=== PATIENT | female | born 1990 | race Caucasian/White ===

== ENCOUNTER 2016-09-27 12:22 | Emergency (ER) | payer BC ==
[~2016-09-27] VITALS: Ht 162.6 cm; Wt 91.0 kg
[~2016-09-27 12:22] MED LIST: EPP3/2 IM; FEXO1TAB49 PO
[2016-09-27 12:31] VITALS: TEMP 36.8; Ht 162.6 cm; Wt 91.0 kg
[2016-09-27] MEDS ORDERED: IBUPROFEN 200 MG TAB PO STA (12:58)
--- NOTE | 2016-09-27 13:02 | EMERGENCY ROOM VISIT NOTE ---
History Report prepared by Angelika: Reji Naylor Under the Supervision of: Dr. Gwendolyn Trotter D.O. First contact with patient: 12:41 Chief Complaint: OTHER COMPLAINT Stated Complaint: CHEST/SKIN-NUMB AND TINGLING, PAIN W/COUGH History of Present Illness The patient is a 26 year old female who presents to the Emergency Room with complaints of worsening chest discomfort that started a few weeks ago. The patient states that 4 weeks ago she slipped twice on ice, and landed on her right knee and toppled over. She had a partial tear of her right MCL, and has a brace on it. The patient states that whenever she had fallen, she must have asim something in her back. A few days after the falls, the right side of her upper back would hurt whenever she breathed. The patient would get a sensation to sneeze, but it would hurt, so she would not actually sneeze. Whenever she would cough and laugh, she would have pain. 2 days ago, the patient actually sneezed, and she felt sudden pain in her back, radiating into her left shoulder and left side of her chest, back to front. The patient notes that this morning she sneezed twice, and she had a lot of pain again. Whenever she coughs or laughs, she has to hold her chest to minimize pain. After her initial sneeze, she has been noticing that her skin has been persistently numb and tingly around her chest, and today, the skin around her chest has been painful to the touch. Her left upper back is continuing to hurt on movement, and lying down exacerbates the pain as well. The patient decided to called the Nurse Line and the patient was suggested to be evaluated here. The patient has been taking Tylenol for the pain. She denies any abdominal pain. The patient notes that she had a lumpectomy of her right breast, and the tingling sensation she had after the procedure is similar to what she is experiencing now. Source of History: patient Onset: A few weeks ago Position: chest (discomfort) Timing: worsening Modifying Factors (Worsening): movement, other (lying down, coughing, laughing, sneezing) Associated Symptoms: + back pain, + numbness (and tingling around chest ), No abdominal pain Note: Associated symptoms: Left shoulder pain. Skin around chest painful to touch. Review of Systems See HPI for pertinent positives & negatives. A total of 10 systems reviewed and were otherwise negative. Past Medical & Surgical Medical Problems: (1) Allergic reaction (2) Anxiety State Nos (3) Chronic Hepatitis C W/O Hepatic Coma (4) Depressive Disorder Nec (5) Tobacco Use Disorder Surgical Problems: (1) History of cholecystectomy (2) History of tonsillectomy (3) Status post breast lumpectomy Family History FH: cancer FH: hypertension FH: seizures Social History Smoking Status: Current Every Day Smoker Alcohol Use: none Marital Status: single Housing Status: lives with family Occupation Status: employed Current/Historical Medications Scheduled Epinephrine (Epipen 2-Nilesh), 0 IM UD Allergies Coded Allergies: No Known Allergies (Unverified , 07/11/15) Physical Exam Vital Signs Date Time Temp Pulse Resp B/P Pulse Ox O2 Delivery O2 Flow Rate FiO2 09/27/16 14:05 70 16 131/65 97 Room Air 09/27/16 12:31 36.8 90 20 158/98 97 Room Air Physical Exam GENERAL: alert, well appearing, well nourished, no distress, non-toxic EYE EXAM: normal conjunctiva, PERRL and EOM's grossly intact OROPHARYNX: no exudate, no erythema, lips, buccal mucosa, and tongue normal and mucous membranes are moist NECK: supple, no nuchal rigidity, no adenopathy, non-tender LUNGS: Clear to auscultation. Normal chest wall mechanics HEART: no murmurs, S1 normal and S2 normal ABDOMEN: abdomen soft, non-tender, normo-active bowel sounds, no masses, no rebound or guarding. BACK: Back is symmetrical on inspection and there is no deformity, no midline tenderness, no CVA tenderness. Mild tenderness along right trapezius. SKIN: no rashes and no bruising UPPER EXTREMITIES: upper extremities are grossly normal. LOWER EXTREMITIES: No pitting edema. NEURO EXAM: Normal sensorium, cranial nerves II-XII grossly intact, normal speech, no gross weakness of arms, no gross weakness of legs. No drift. Finger to nose intact. Gross sensation intact. Medical Decision & Procedures ER Provider Diagnostic Interpretation: X-ray results per the radiologist and my interpretation. TWO VIEW CHEST CLINICAL HISTORY: Atypical chest pain. FINDINGS: PA and lateral chest radiographs are obtained. No prior studies are available for comparison at the time of dictation. The cardiomediastinal silhouette is unremarkable. The lungs and pleural spaces are clear. There is no pneumothorax. The bony thorax appears intact. Cholecystectomy clips are seen in the right upper quadrant. IMPRESSION: No active disease in the chest. Electronically signed by: Sidney Miner M.D. 09/27/2016 1:13 PM Dictated Date/Time: 09/27/2016 1:13 PM Medications Administered Medications (Trade) Dose Ordered Sig/Nicole Route Start Time Stop Time Status Last Admin Dose Admin Ibuprofen (Advil Tab) 800 mg NOW STAT PO 09/27/16 12:58 09/27/16 13:00 DC 09/27/16 13:09 800 MG Acetaminophen (Tylenol Tab) 1,000 mg NOW STAT PO 09/27/16 14:02 09/27/16 14:03 DC 09/27/16 14:08 1,000 MG ECG Indication: chest pain Rate (beats per minute): 62 Rhythm: normal sinus Findings: T-wave inversion (in 1 and AVL), other (normal axis, normal intervals ) Change: Second ECG: Sinus gaby at 58 bpm, normal axis, normal intervals, no ectopy, no acute ischemic changes. ED Course 1244: The patient was evaluated in room B9. A complete history and physical exam was performed. 1258: Ordered Advil Tab 800 mg PO. 1358: Upon reevaluation, the patient resting comfortably. I discussed the findings and the treatment plan with the patient. She verbalizes agreement and understanding. She will be discharged home. 1402: Ordered Tylenol Tab 1000 mg PO. Medical Decision Differential diagnoses include but are not limited to: acute trauma, pneumothorax, muscle strain, costochondritis Pt well appearing here despite complaints. Stable VS, pain improved with meds. Suspect first EKG with lead reversal. Doubt acute cardiac etiology including acs, dissection, tamponade,effusion, pericarditis, doubt occult chest trauma. No direct trauma to chest 5 weeks about with original fall. More likely musculoskeletal injury that was exacerbated with recent sneezing. Discussed with pt close f/u with PCP, sx to watch/return for, she verbalized understanding and was agreeable with plan. Pt encouraged to quit smoking. Impression Primary Impression: Chest pain Scribe Attestation The scribe's documentation has been prepared under my direction and personally reviewed by me in its entirety. I confirm that the note above accurately reflects all work, treatment, procedures, and medical decision making performed by me. Departure Information Dispostion Home / Self-Care Referrals No Doctor, Assigned (PCP) Forms HOME CARE DOCUMENTATION FORM, IMPORTANT VISIT INFORMATION, WORK / SCHOOL INSTRUCTIONS Patient Instructions [facility] Additional Instructions Please call and establish a local family doctor. If you have any worsening pain , trouble breathing, fevers, vomiting, notice rash/sores, bruising, or you have any other new or concerning symptoms, please return to the emergency room. You may use tylenol and ibuprofen as needed for pain. Please avoid any heavy lifting or strenuous activity until you are feeling better. Problem Qualifiers Primary Impression: Chest pain Chest pain type: unspecified Qualified Codes: R07.9 - Chest pain, unspecified
--- NOTE | 2016-09-27 13:15 | DIAGNOSTIC IMAGING REPORT ---
TWO VIEW CHEST CLINICAL HISTORY: Atypical chest pain. FINDINGS: PA and lateral chest radiographs are obtained. No prior studies are available for comparison at the time of dictation. The cardiomediastinal silhouette is unremarkable. The lungs and pleural spaces are clear. There is no pneumothorax. The bony thorax appears intact. Cholecystectomy clips are seen in the right upper quadrant. IMPRESSION: No active disease in the chest. Electronically signed by: Sidney Miner M.D. 09/27/2016 1:13 PM Dictated Date/Time: 09/27/2016 1:13 PM
[2016-09-27] MEDS ORDERED: ACETAMINOPHEN 500 MG TAB PO STA (14:02)
[2016-09-27 14:05] VITALS: BP 131/65; PULSE 70; O2SAT 97
== END 2016-09-27 14:22 | disposition home or self-care (01) ==
LOC: C.EDB 12:25
DX: R07.9 Chest pain, unspecified (principal); F32.9 Major depressive disorder, single episode, unspecified; F41.9 Anxiety disorder, unspecified; B19.20 Unspecified viral hepatitis C without hepatic coma; F17.200 Nicotine dependence, unspecified, uncomplicated; Z90.49 Acquired absence of other specified parts of digestive tract; Z98.890 Other specified postprocedural states; Z80.9 Family history of malignant neoplasm, unspecified; Z82.49 Family history of ischemic heart disease and other diseases of the circulatory system; Z82.0 Family history of epilepsy and other diseases of the nervous system